=== PATIENT | female | born 1945 | race Caucasian/White ===

== ENCOUNTER 2022-06-08 13:37 | Emergency (ER) | payer MEDICARE, BC ==
[2022-06-08] MEDS ORDERED: Diphtheria,Pertussis(Acell),Tetanus Vaccine 0.5 ML Syringe IM ONE (15:03)
== END 2022-06-08 15:45 | disposition home or self-care (01) ==
LOC: LL.ED 13:37
DX: S61.412A Laceration without foreign body of left hand, initial encounter (principal); Z23 Encounter for immunization; I48.91 Unspecified atrial fibrillation; Z88.6 Allergy status to analgesic agent; Z91.09 Other allergy status, other than to drugs and biological substances; W19.XXXA Unspecified fall, initial encounter
CPT/HCPCS: 36415; 70450; 85610; 90471; 90715; 99282; 99283

== ENCOUNTER 2022-10-09 06:31 | Emergency (ER) | payer MEDICARE, BC ==
[2022-10-09] MEDS ORDERED: Sodium Chloride 0.9% 10 ML Syringe FLUSH PRN (06:44)
[2022-10-09 07:06] LABS: BASOPHILS ABSOLUTE AUTO 0.02 K/uL (0.00-0.20); BASOPHILS PERCENT AUTO 0.2 % (0.0-2.0); EOSINOPHILS ABSOLUTE AUTO 0.05 K/uL (0.00-0.50); EOSINOPHILS PERCENT AUTO 0.5 % (0.0-5.0); HEMATOCRIT 35.2 % (34.0-46.0); HEMOGLOBIN 11.1 g/dL (11.7-15.5); LYMPHOCYTES ABSOLUTE AUTO 1.58 K/uL (0.50-3.50); MEAN CORPUSCULAR HEMOGLOBIN 30.4 pg (28.2-33.3); MEAN CORPUSCULAR HGB CONC 31.5 g/dL (31.7-36.0); MEAN CORPUSCULAR VOLUME 96.4 fL (84.0-98.0); MONOCYTES ABSOLUTE AUTO 1.08 K/uL (0.00-1.00); MONOCYTES PERCENT AUTO 10.3 % (2.0-14.0); PLATELET COUNT,PLT 210 K/uL (150-350); RED BLOOD CELL COUNT 3.65 M/uL (3.77-5.09); RED CELL DISTRIBUTION WIDTH 13.9 % (11.2-14.1); WHITE BLOOD CELL COUNT,WBC 10.5 K/uL (4.0-10.2)
[2022-10-09 07:13] LABS: ALANINE AMINOTRANSFERASE,ALT 13 U/L (12-78); ALBUMIN 3.1 g/dL (3.4-5.0); ALKALINE PHOSPHATASE 51 IU/L (46-116); ANION GAP 6.9 meq/L (7-15); ASPARTATE AMNIOTRANSFERASE,AST 20 U/L (15-37); BILIRUBIN TOTAL 0.4 mg/dL (0.2-1.0); BLOOD UREA NITROGEN,BUN 28 mg/dL (7-18); CALCIUM 9.1 mg/dL (8.5-10.1); CARBON DIOXIDE,CO2 30.1 mmol/L (21.0-32.0); CHLORIDE,CL 106 mmol/L (98-107); CREATINE KINASE,CK 140 U/L (26-308); CREATININE 1.27 mg/dL (0.51-1.17); GLUCOSE RANDOM 119 mg/dL (70-99); POTASSIUM,K 4.4 mmol/L (3.5-5.1); PROTEIN TOTAL,TP 6.7 g/dL (6.4-8.2); SODIUM,NA 143 mmol/L (136-145)
[2022-10-09 07:14] LABS: ESTIMATED GFR 44 mL/min (>=60)
[2022-10-09 07:26] LABS: INR 2.2; PROTHROMBIN TIME 21.6 SEC (9.0-11.1)
[2022-10-09] MEDS: Sodium Chloride 0.9% 1,000 ML IV ONE (07:44)
== END 2022-10-09 09:20 ==
LOC: LL.ED 06:31
DX: I95.9 Hypotension, unspecified (principal); I48.91 Unspecified atrial fibrillation; Z79.899 Other long term (current) drug therapy; Z88.5 Allergy status to narcotic agent; Z91.048 Other nonmedicinal substance allergy status
CPT/HCPCS: 36415; 71045; 73070-RT; 80053; 82550; 83605; 84484; 85025; 85610; 93005; 93010; 96360; 99284; 99284-25; J7030

== ENCOUNTER 2023-02-14 12:38 | Emergency (ER) | payer MEDICARE, BC ==
[2023-02-14 12:56] LABS: BASOPHILS ABSOLUTE AUTO 0.02 K/uL (0.00-0.20); BASOPHILS PERCENT AUTO 0.2 % (0.0-2.0); EOSINOPHILS ABSOLUTE AUTO 0.18 K/uL (0.00-0.50); EOSINOPHILS PERCENT AUTO 1.8 % (0.0-5.0); HEMATOCRIT 36.2 % (34.0-46.0); HEMOGLOBIN 11.5 g/dL (11.7-15.5); LYMPHOCYTES ABSOLUTE AUTO 1.29 K/uL (0.50-3.50); LYMPHOCYTES PERCENT AUTO 12.7 % (10.0-50.0); MEAN CORPUSCULAR HEMOGLOBIN 30.3 pg (28.2-33.3); MEAN CORPUSCULAR HGB CONC 31.8 g/dL (31.7-36.0); MEAN CORPUSCULAR VOLUME 95.5 fL (84.0-98.0); MONOCYTES ABSOLUTE AUTO 0.64 K/uL (0.00-1.00); MONOCYTES PERCENT AUTO 6.3 % (2.0-14.0); NEUTROPHILS ABSOLUTE AUTO 8.02 K/uL (1.40-7.00); PLATELET COUNT,PLT 243 K/uL (150-350); RED BLOOD CELL COUNT 3.79 M/uL (3.77-5.09); RED CELL DISTRIBUTION WIDTH 14.4 % (11.2-14.1); WHITE BLOOD CELL COUNT,WBC 10.2 K/uL (4.0-10.2)
[2023-02-14 13:07] LABS: INR 2.7 (0.9-1.1); PROTHROMBIN TIME 26.1 SEC (9.0-11.1)
[2023-02-14 13:13] LABS: ALANINE AMINOTRANSFERASE,ALT 5 U/L (12-78); ALBUMIN 3.1 g/dL (3.4-5.0); ALKALINE PHOSPHATASE 59 IU/L (46-116); ANION GAP 6.6 meq/L (7-15); ASPARTATE AMNIOTRANSFERASE,AST 13 U/L (15-37); BILIRUBIN TOTAL 0.3 mg/dL (0.2-1.0); BLOOD UREA NITROGEN,BUN 28 mg/dL (7-18); CALCIUM 8.8 mg/dL (8.5-10.1); CARBON DIOXIDE,CO2 28.4 mmol/L (21.0-32.0); CHLORIDE,CL 105 mmol/L (98-107); CREATININE 1.58 mg/dL (0.51-1.17); GLUCOSE RANDOM 197 mg/dL (70-99); POTASSIUM,K 4.2 mmol/L (3.5-5.1); PROTEIN TOTAL,TP 6.7 g/dL (6.4-8.2); SODIUM,NA 140 mmol/L (136-145)
[2023-02-14 13:15] LABS: ESTIMATED GFR 33 mL/min (>=60)
== END 2023-02-14 15:15 ==
LOC: LL.ED 12:38
DX: S00.03XA Contusion of scalp, initial encounter (principal); I48.20 Chronic atrial fibrillation, unspecified; Z88.5 Allergy status to narcotic agent; Z88.8 Allergy status to other drugs, medicaments and biological substances; W19.XXXA Unspecified fall, initial encounter
CPT/HCPCS: 36415; 70450; 71045; 72125; 72170; 74018; 80053; 84484; 85025; 85610; 99284; 99285